=== PATIENT | male | born 1980 | race Two or more races ===

== ENCOUNTER 2019-11-09 17:08 | Emergency (ER) | payer MEDICAID ==
[~2019-11-09] VITALS: Ht 177.8 cm; Wt 68.0 kg
[2019-11-09] MEDS ORDERED: KETOROLAC 60MG/2ML VIAL IM ONE (17:45)
[2019-11-09] MEDS ORDERED: HYDROCODONE/ACETAMINOPHEN 5/325MG TABLET PO ONE (19:45)
[2019-11-09] MEDS ORDERED: METHOCARBAMOL 750MG TABLET PO SCH (19:45)
[2019-11-09 19:53] VITALS: BP 132/74
== END 2019-11-09 19:54 | disposition home or self-care (01) ==
LOC: ER 17:08
DX: M79.605 Pain in left leg (principal)
CPT/HCPCS: 96372; 99283; J1885; Z7610